=== PATIENT | female | born 2005 | race Caucasian/White ===

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

== ENCOUNTER 2024-04-02 18:15 | Emergency (ER) | payer MEDICAID ==
[~2024-04-02] VITALS: Ht 160 cm; Wt 52.3 kg
[~2024-04-02 18:15] MED LIST: NO HOME MEDS
[2024-04-02] MEDS ORDERED: AMOX-101 PO (18:40)
[2024-04-02] MEDS: amoxicillin 250mg capsule PO ONE (18:59)
[2024-04-02 19:03] VITALS: BP 107/62; PULSE 74; RESP 16; O2SAT 100
== END 2024-04-02 19:08 | disposition home or self-care (01) ==
LOC: ER 18:15
DX: K08.89 Other specified disorders of teeth and supporting structures (principal)
CPT/HCPCS: 99283